=== PATIENT | female | born 1970 | race Caucasian/White ===

== ENCOUNTER 2017-10-10 13:48 | Emergency (ER) | payer BC ==
[~2017-10-10] VITALS: Ht 165.1 cm; Wt 81.2 kg
[~2017-10-10 13:48] MED LIST: CAMILA0.35 MG PO; MULTIVITAMINS1 EAC7 PO; PINDOLOL10 MG PO
[2017-10-10] MEDS ORDERED: PRAVACHOL40 MG PO (14:08)
[2017-10-10] MEDS ORDERED: PREDNISONE 10 M10 MG PO (14:08)
[2017-10-10] MEDS ORDERED: CELLCEPT500 MG PO (14:08)
[2017-10-10] MEDS ORDERED: VITAMIN D2000 UNIT PO (14:09)
[2017-10-10] MEDS ORDERED: CALCIUM 600 +1 EAC1 PO (14:09)
[2017-10-10] MEDS ORDERED: PROTONIX40 M1 PO (14:09)
[2017-10-10] MEDS ORDERED: ASPIR 8181 MG PO (14:09)
[2017-10-10] MEDS ORDERED: [UNRECOGNIZED DRUG - OTHER] (14:09)
[2017-10-10] MEDS ORDERED: BACTRIM DS TAB1 EACH PO (14:10)
[2017-10-10 15:00] VITALS: BP 134/81
== END 2017-10-10 14:58 | disposition home or self-care (01) ==
LOC: M.ERS 13:48
DX: S80.12XA Contusion of left lower leg, initial encounter (principal); Z88.1 Allergy status to other antibiotic agents; W18.39XA Other fall on same level, initial encounter; Y93.89 Activity, other specified; Y92.89 Other specified places as the place of occurrence of the external cause; Y99.8 Other external cause status